=== PATIENT | male | born 1940 | race Native Hawaiian/Other Pacific Islander ===

== ENCOUNTER 2017-04-14 10:54 | Emergency (ER) | payer MEDICARE ==
[2017-04-14 11:07] VITALS: PULSE 78; TEMP 97.6
[2017-04-14 11:19] VITALS: BMI 24.9
--- NOTE | 2017-04-14 12:30 | ED PDOC ---
Arrival/HPI - General Chief Complaint: High Blood Pressure Time Seen by Provider: 04/14/17 10:57 - History of Present Illness Narrative History of Present Illness (Text): using a English verifying specialist, you were treated in the ED today for gradual onset left fronta headache for about 1 month but otherwise without any nausea/vomiting /blurry vision/dizziness/difficulty breathing/chest pain/abdomen pain/numbness/ tingling/loss of limb function/pain with urination. You were otherwise breathing easily, smiling and talking easily, good strength/sensation, alert/ oriented, walking easily, clear lungs, no abdomen tenderness, no fever temp 97.6 , stable heart rate 78, stable breathing rate 16, excellent oxygen level 100% room air, elevated blood pressure 172/101 which we recommend repeat in 2-3 days primary care office to determine further treatment, CT head , tylenol, zofran and counseled to continue your home anti-high blood pressure medcations which you are compliant with you stated, thus discharged home with . 1. Recommend tylenol as directed for pain. 2. Recommend continue your home medications 3. Recommend follow-up primary care 2-3 days to review symptoms to review your blood pressure medications, referral to neurology clinic. 4. If any worsening pain, fever, chills, nausea, vomiting, difficulty breathing, numbness , loss of limb function, pain with urination or any medical condition then return to the ED. 04/14/17 12:26 04/14/17 12:30 Time/Duration: Prior to Arrival, < month (1) Symptom Onset: Gradual Symptom Course: Unchanged, Intermittent Quality: Aching Severity Level: 3 Past Medical History - Provider Review Nursing Documentation Reviewed: Yes - Travel History Have you recently traveled outside [place] w/in the past 3 mons?: No - Infectious Disease Hx of Infectious Diseases: None - Cardiac Hx Hypertension: Yes Hx Peripheral Vascular Disease: Yes Other/Comment: R leg sx - Psychiatric Hx Substance Use: No - Surgical History Hx Vascular Surgery: Yes - Anesthesia Hx Anesthesia: Yes Hx Anesthesia Reactions: No Hx Malignant Hyperthermia: No Family/Social History - Physician Review Nursing Documentation Reviewed: Yes Family/Social History: No Known Family HX Smoking Status: Never Smoked Hx Alcohol Use: Yes Frequency of alcohol use: Socially Hx Substance Use: No Allergies/Home Meds Allergies/Adverse Reactions: Allergies No Known Allergies Allergy (Verified 04/14/17 11:38) Home Medications: Home Meds Medication Instructions Recorded Confirmed Aspirin [Aspirin Chewable] 1 tab PO DAILY 04/14/17 04/14/17 Cilostazol [Pletal] 1 tab PO BID 04/14/17 04/14/17 Losartan/Hydrochlorothiazide 1 tab PO DAILY 04/14/17 04/14/17 [Losartan-Hctz 50-12.5 mg Tab] Metoprolol Tartrate [Lopressor] 1 tab PO DAILY 04/14/17 04/14/17 Rivaroxaban [Xarelto] 1 tab PO DAILY 04/14/17 04/14/17 Sotalol [Betapace] 1 tab PO BID 04/14/17 04/14/17 Review of Systems - Review of Systems Constitutional: Normal Eyes: Normal ENT: Normal Respiratory: Normal Cardiovascular: Normal Gastrointestinal: Normal Genitourinary Male: Normal Musculoskeletal: Normal Skin: Normal Neurological: Headache Endocrine: Normal Hemo/Lymphatic: Normal Psychiatric: Normal Physical Exam Vital Signs Reviewed: Yes Vital Signs Temp Pulse Resp BP Pulse Ox 04/14/17 13:08 78 18 166/86 H 99 04/14/17 11:06 97.6 F 78 16 172/101 H 100 Temperature: Afebrile Blood Pressure: Hypertensive Pulse: Regular Respiratory Rate: Normal Appearance: Positive for: Well-Appearing, Non-Toxic, Comfortable Pain Distress: None Mental Status: Positive for: Alert and Oriented X 3 - Systems Exam Head: Present: Atraumatic, Normocephalic Pupils: Present: PERRL Extroacular Muscles: Present: EOMI Conjunctiva: Present: Normal Ears: Present: Normal Mouth: Present: Moist Mucous Membranes Pharnyx: Present: Normal Nose (External): Present: Atraumatic Nose (Internal): Present: Normal Inspection Neck: Present: Normal Range of Motion Respiratory/Chest: Present: Clear to Auscultation, Good Air Exchange, Respiratory Distress Cardiovascular: Present: Regular Rate and Rhythm Abdomen: No: Tenderness, Distention, Normal Bowel Sounds, Peritoneal Signs, Rebound, Guarding, McBurney's Point Tender, Rovsing's Sign Present, Hernias, Feeding Tubes, Ostomy Tubes, Mass/Organomegaly, Scars, Other Back: Present: Normal Inspection Upper Extremity: Present: Normal Inspection Lower Extremity: Present: Normal Inspection Neurological: Present: GCS=15, CN II-XII Intact, Speech Normal, Motor Func Grossly Intact Skin: Present: Warm, Normal Color Psychiatric: Present: Alert, Oriented x 3, Normal Insight, Normal Concentration Medical Decision Making ED Course and Treatment: 04/14/2017 12:[address] IMPRESSION: Microvascular changes are seen in the deep white matter left greater than right as well as the basal ganglia and thalami. There are no acute findings. Dictator: Sacha Steinberg MD - Lab Interpretations Narrative Lab Interpretation (Text): using a English verifying specialist, you were treated in the ED today for gradual onset left fronta headache for about 1 month but otherwise without any nausea/vomiting /blurry vision/dizziness/difficulty breathing/chest pain/abdomen pain/numbness/ tingling/loss of limb function/pain with urination. You were otherwise breathing easily, smiling and talking easily, good strength/sensation, alert/ oriented, walking easily, clear lungs, no abdomen tenderness, no fever temp 97.6 , stable heart rate 78, stable breathing rate 16, excellent oxygen level 100% room air, elevated blood pressure 172/101 and repeat 163/86 which we recommend repeat in 2-3 days primary care office to determine further treatment, CT head no acute, tylenol, zofran and counseled to continue your home anti-high blood pressure medcations which you are compliant with you stated, thus discharged. 1. Recommend tylenol as directed for pain. 2. Recommend continue your home medications 3. Recommend follow-up primary care 2-3 days to review symptoms to review your blood pressure medications, referral to neurology clinic. 4. If any worsening pain, fever, chills, nausea, vomiting, difficulty breathing, numbness , loss of limb function, pain with urination or any medical condition then return to the ED. 04/14/17 12:26 04/14/17 13:11 - RAD Interpretation Radiology Orders: 04/14/17 11:39 HEAD W/O CONTRAST [CT] Stat Welfare Officer: Radiologist - Medication Orders Current Medication Orders: Discontinued Medications Acetaminophen (Tylenol 325mg Tab) 975 mg PO STAT STA Stop: 04/14/17 11:44 Last Admin: 04/14/17 11:51 Dose: 975 mg MAR Pain/Vitals Document 04/14/17 11:51 SE (Rec: 04/14/17 11:51 SE [id number]) Pain Reassessment Is This A Pain ReAssessment? No Sleep Is patient sleeping during reassessment? No Presence of Pain Presence of Pain Yes Pain Scale Used Pain Scale Used Numeric Location Pain Location Body [employer] Ondansetron HCl (Zofran Odt) 4 mg PO STAT STA Stop: 04/14/17 11:45 Last Admin: 04/14/17 11:51 Dose: 4 mg Disposition/Present on Arrival - Present on Arrival Any Indicators Present on Arrival: No History of DVT/PE: No History of Uncontrolled Diabetes: No Urinary Catheter: No History of Decub. Ulcer: No History Surgical Site Infection Following: None - Disposition Have Diagnosis and Disposition been Completed?: Yes Diagnosis: Hypertension, Headache Disposition: HOME/ ROUTINE Disposition Time: 13:12 Patient Plan: Discharge Patient Problems: Current Active Problems Problem Status Onset Headache Acute Hypertension Acute Condition: IMPROVED Additional Instructions: using a English verifying specialist, you were treated in the ED today for gradual onset left fronta headache for about 1 month but otherwise without any nausea/vomiting /blurry vision/dizziness/difficulty breathing/chest pain/abdomen pain/numbness/ tingling/loss of limb function/pain with urination. You were otherwise breathing easily, smiling and talking easily, good strength/sensation, alert/ oriented, walking easily, clear lungs, no abdomen tenderness, no fever temp 97.6 , stable heart rate 78, stable breathing rate 16, excellent oxygen level 100% room air, elevated blood pressure 172/101 and repeat 163/86 which we recommend repeat in 2-3 days primary care office to determine further treatment, CT head no acute, tylenol, zofran and counseled to continue your home anti-high blood pressure medcations which you are compliant with you stated, thus discharged. 1. Recommend tylenol as directed for pain. 2. Recommend continue your home medications 3. Recommend follow-up primary care 2-3 days to review symptoms to review your blood pressure medications, referral to neurology clinic. 4. If any worsening pain, fever, chills, nausea, vomiting, difficulty breathing, numbness , loss of limb function, pain with urination or any medical condition then return to the ED. Forms: [employer] (Greek)
--- NOTE | 2017-04-14 12:51 | CT ---
PROCEDURE: CT HEAD WITHOUT CONTRAST. HISTORY: 76yoM, HTN, with new type headache COMPARISON: None available. TECHNIQUE: Axial computed tomography images were obtained through the head/brain without intravenous contrast. Radiation dose: Total exam DLP = 1015 mGy-cm. This CT exam was performed using one or more of the following dose reduction techniques: Automated exposure control, adjustment of the mA and/or kV according to patient size, and/or use of iterative reconstruction technique. FINDINGS: HEMORRHAGE: No intracranial hemorrhage. BRAIN: No mass effect or edema. Microvascular changes are seen in the deep white matter left greater than right as well as the basal ganglia and thalami. There are no acute findings VENTRICLES: Unremarkable. No hydrocephalus. CALVARIUM: Unremarkable. PARANASAL SINUSES: Unremarkable as visualized. No significant inflammatory changes. MASTOID AIR CELLS: Unremarkable as visualized. No inflammatory changes. OTHER FINDINGS: None. IMPRESSION: Microvascular changes are seen in the deep white matter left greater than right as well as the basal ganglia and thalami. There are no acute findings
[2017-04-14 13:08] VITALS: BP 166/86; RESP 18; O2SAT 99
== END 2017-04-14 13:27 | disposition home or self-care (01) ==
LOC: ED 10:54 → MERGE 10:54 → ED 13:27
DX: I10 Essential (primary) hypertension (principal); R51 Headache